=== PATIENT | male | born 1955 | race Caucasian/White ===

== ENCOUNTER 2023-03-01 18:40 | Emergency (ER) | payer MEDICARE, SELFPAY ==
[2023-03-01 18:55] VITALS: BP 152/96; PULSE 89; RESP 20; TEMP 36.6; O2SAT 95; BMI 30.3
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
[2023-03-01] MEDS: CEPHALEXIN 500 MG CAPSULE PO (20:47)
[2023-03-01] MEDS: HYDROCODONE/ACETAMINOPHEN 5-325 MG TABLET 1 TAB PO (20:47)
[2023-03-01] MEDS: BACITRACIN 0.9 GM PACKET 1 PACKET TOPICAL (20:48)
[2023-03-01 20:53] VITALS: BP 140/99; PULSE 85; RESP 18; O2SAT 95
== END 2023-03-01 21:00 | disposition home or self-care (01) ==
PROVIDERS: Emergency Provider Emergency Medicine
DX: S51.812A Laceration without foreign body of left forearm, initial encounter (principal); W45.8XXA Other foreign body or object entering through skin, initial encounter; F17.210 Nicotine dependence, cigarettes, uncomplicated
CPT/HCPCS: 12002; 81003; 99283